=== PATIENT | male | born 1980 | race Caucasian/White ===

== ENCOUNTER 2018-03-05 19:01 | Emergency (ER) | payer BC ==
--- NOTE | 2018-03-05 19:41 | ED Physician Chart ---
ED Chief Complaint/HPI - Patient Information Date Seen:: 03/05/18 Time Seen:: 19:30 Chief Complaint:: abdominal pain History of Present Illness:: location: abdomen quality: sharp achy pain severity: mild, mod duration: 3 days context: pt with spontaneous onset of RUQ abdominal pain. some nausea. has been trying to eat, reduced overall PO intake. spoke with some family, has history of cholelithiasis in family. decided to come to the ER today instead of wait for clinic tomorrow due to persistent pain and duration of pain. no fever, no emesis today. mod factors: none assoc s/s: none hx from pt Allergies:: Allergies Allergy/AdvReac Type Severity Reaction Status Date / Time No Known Allergies Allergy Verified 03/05/18 19:13 Vitals:: Vital Signs - 8 hr 03/05/18 19:13 Temp 97.9 F HR 82 RR 17 BP 128/102 O2 Sat % 97 Historian:: Patient Review:: Nurse's Note Reviewed ED Review of Systems - Review of Systems General/Constitutional: No fever, No chills, No weight loss, No weakness, No diaphoresis, No edema, No loss of appetite Skin: No skin lesions, No rash, No bruising Head: No headache, No light-headedness Eyes: No loss of vision, No pain, No diplopia ENT: No earache, No nasal drainage, No sore throat, No tinnitus Neck: No neck pain, No swelling, No thyromegaly, No stiffness, No mass noted Cardio Vascular: No chest pain, No palpitations, No PND, No orthopnea, No edema Pulmonary: No SOB, No cough, No sputum, No wheezing GI: Nausea, No vomiting, No diarrhea, Pain, No melena, No hematochezia, No constipation, No hematemesis G/U: No dysuria, No frequency, No hematuria Musculoskeletal: No bone or joint pain, No back pain, No muscle pain Endocrine: No polyuria, No polydipsia Psychiatric: No prior psych history, No depression, No anxiety, No suicidal ideation Hematopoietic: No bruising, No lymphadenopathy Allergic/Immuno: No urticaria, No angioedema Neurological: No syncope, No focal symptoms, No weakness, No paresthesia, No headache, No seizure, No dizziness, No confusion, No vertigo ED Past Medical History - Past Medical History Past Medical History: No significant medical hx Family History: Other (cholelithiasis) Social History: Non Smoker, No Alcohol, No Drug Use, Surgical History: None Psychiatricy History: None Medication: None Family Medical History - Family Member Mother History Unknown: Yes ED Physical Exam - Physical Examination General/Constitutional: Awake, Well-developed, well-nourished, Alert, No distress, GCS 15, Non-toxic appearing, Ambulatory Head: Atraumatic Eyes: Lids, conjuctiva normal, PERRL, EOMI Skin: Nl inspection, No rash, No skin lesions, No ecchymosis, Well hydrated, No lymphadenopathy ENMT: External ears, nose nl, Nasal exam nl, Lips, teeth, gums nl Neck: Nontender, Full ROM w/o pain, No JVD, No nuchal rigidity, No bruit, No mass, No stridor Respiratory: Nl effort/Exclusion, Clear to Auscultation, No Wheeze/Rhonchi/Rales Cardio Vascular: RRR, No murmur, gallop, rubs, NL S1 S2 GI: Normal BS's (positive mild Rodriguez's sign, no rebound, normal bowel sounds lower abdomen. no peritoneal signs.), Nondistended, No mass/bruits, No McBurney tenderness : No CVA tenderness Extremities: No tenderness or effusion, Full ROM, normal strength in all extremities, No edema, Normal digits & nails Neuro/Psych: Alert/oriented, DTR's symmetric, Normal sensory exam, Normal motor strength, Judgement/insight normal, Mood normal, Normal gait, No focal deficits Misc: Normal back, No paraspinal tenderness ED Labs/Radiology/EKG Results - Lab Results Results: Laboratory Tests 03/05/18 03/05/18 19:40 19:40 WBC 6.0 RBC 5.54 Hgb 15.7 Hct 48.1 MCV 86.8 MCH 28.3 MCHC Differential 32.6 RDW 12.1 Plt Count 290 MPV 7.5 Neutrophils % 47.7 Lymphocytes % 43.9 Monocytes % 5.7 Eosinophils % 2.2 Basophils % 0.5 Sodium 139 Potassium 3.6 Chloride 104 Carbon Dioxide 24.1 Anion Gap 14.5 BUN 16 Creatinine 0.9 Est GFR ( Amer) > 60.0 Est GFR (Non-Af Amer) > 60.0 BUN/Creatinine Ratio 17.8 Glucose 142 H Calcium 9.4 Total Bilirubin 0.5 AST 26 ALT 47 Alkaline Phosphatase 78 Total Protein 7.0 Albumin 4.4 Globulin 2.6 Albumin/Globulin Ratio 1.7 Amylase 48 Lipase 17 - Radiology Results Results: ultrasound abdomen: contracted gall bladder no obvious stones no common duct dilation right lower lobe liver parenchymal changes ER READ pt will be advised to FU with PCP for further evaluation and treatment as indicated. ED Assessment - Assessment General Assessment: pt stable while in ER. improved after meds. ED Septic Shock - . Is Septic Shock (SBP<90, OR Lactate>4 mmol\L) present?: No - <6hrs of presentation: Vital Signs: Vital Signs - 8 hr 03/05/18 19:13 Temp 97.9 F HR 82 RR 17 BP 128/102 O2 Sat % 97 Assessment of Lungs: Lung CTA bilateral Assessment of Heart: RRR EKG Interpretation: NSR Capillary refill evaluation: Capillary refill < 2 secs Skin Exam: Warm, Dry, Good Turgur ED Reassessment (Disposition) - Reassessment Reassessment:: pt stable while in ER. Reassessment Condition:: Improved - Diagnosis Diagnosis:: abdominal pain, gastroenteritis, other - Aftercare/Follow up Instructions Notes:: pt with 3 day history of RUQ pain labs and ultrasound do not show any acute abnormality will refer pt to PCP for recheck tomorrow and further study as indicated. - Patient Disposition Discharge/Transfer:: Home Condition at Disposition:: Stable, Improved
[2018-03-05 19:46] LABS: % BASOPHILS 0.5 % (0.0-2.0); % EOSINOPHILS 2.2 % (0.0-5.0); % LYMPHOCYTES 43.9 % (20.0-50.0); % MONOCYTES 5.7 % (2.0-10.0); % NEUTROPHILS 47.7 % (40.0-80.0); EOSINOPHILE ABSOLUTE 0.1 Th/cmm (0.1-0.4); HEMATOCRIT 48.1 % (41.0-60); HEMOGLOBIN 15.7 gm/dL (12-16); LYMPHOCYTE ABSOLUTE 2.6 Th/cmm (1.5-3.0); MEAN CELL VOLUME 86.8 fl (80-99); MEAN CORPUSCULAR HEMOGLOBIN 28.3 pg (26.0-30.0); MEAN CORPUSCULAR HGB CONC 32.6 pg (28.0-36.0); MEAN PLATELET VOLUME 7.5 fl; MONOCYTE ABSOLUTE 0.3 Th/cmm (0.3-1.0); PLATELET COUNT 290 Th/cmm (150-400); RED BLOOD COUNT 5.54 Mil/cmm (4.30-5.70); RED CELL DISTRIBUTION WIDTH 12.1 % (11.5-20.0)
[2018-03-05 20:04] LABS: ALB/GLOB RATIO 1.7 (1.0-1.8); ALBUMIN 4.4 gm/dL (4.2-5.5); ALKALINE PHOSPHATASE 78 U/L (34-104); AMYLASE SERUM 48 U/L (29-103); ANION GAP 14.5 (7.0-16.0); BILIRUBIN,TOTAL 0.5 mg/dL (0.3-1.0); BUN - UREA NITROGEN 16 mg/dL (7-25); CALCIUM SERUM 9.4 mg/dL (8.6-10.3); CARBON DIOXIDE 24.1 mEq/L (21.0-31.0); CHLORIDE 104 mEq/L (98-107); CREATININE - SERUM 0.9 mg/dL (0.7-1.3); GFR AFRICAN-AMERICAN > 60.0 ml/min (>90); GFR NON AFRICAN-AMERICAN > 60.0 ml/min; GLUCOSE 142 mg/dL (70-105); LIPASE 17 U/L (11-82); POTASSIUM SERUM 3.6 mEq/L (3.5-5.1); SGOT 26 U/L (13-39); SGPT/ALT 47 U/L (7-52); SODIUM SERUM 139 mEq/L (136-145)
[2018-03-05 22:21] LABS: URINE SOURCE CLEAN C
[2018-03-05 22:25] LABS: URINE BILIRUBIN NEGATIVE (NEGATIVE); URINE BLOOD NEGATIVE (NEGATIVE); URINE GLUCOSE (UA) NEGATIVE (NEGATIVE); URINE KETONE NEGATIVE (NEGATIVE); URINE LEUKOCYTE ESTERASE NEGATIVE (NEGATIVE); URINE NITRATE NEGATIVE (NEGATIVE); URINE PH 6.5 (4.6 - 8.0); URINE PROTEIN NEGATIVE (NEGATIVE); URINE UROBILINOGEN 0.2 E.U./dL (0.2 - 1.0)
[2018-03-05 22:27] LABS: URINE CLARITY CLEAR (CLEAR); URINE COLOR YELLOW; URINE MICROSCOPIC INDICATED? NO
--- NOTE | 2018-03-06 07:38 | Diagnostic Imaging Report ---
Ultrasound abdomen, Limited History: Right upper quadrant pain, rule out gallstones Comparison: CT abdomen and pelvis performed the same day Technique/procedure: Sonography of the right upper quadrant was performed in multiple planes Exam is limited due to bowel gas. The liver demonstrates increased echogenicity measures 18.8 cm. There is areas of decreased echogenicity adjacent to the gallbladder probably related to an area of fatty sparing. The gallbladder is contracted limiting its evaluation. The common bile duct measures 4 mm. No pericholecystic fluid. Evaluation of the pancreas is limited due to bowel gas. Evaluation of the right kidney demonstrates no hydronephrosis. IMPRESSION: Contracted gallbladder limiting its evaluation. If clinically indicated, follow-up repeat exam after fasting may be obtained for further assessment. Mild hepatomegaly with increased echogenicity which may be due to underlying fatty infiltration. There is areas of decreased echogenicity adjacent to gallbladder probably representing an area of fatty sparing. Please also refer to recent CT examination for further details. Indicated a follow-up CT with IV contrast may also be.
--- NOTE | 2018-03-06 08:05 | Diagnostic Imaging Report ---
CT abdomen and pelvis without intravenous contrast Indication: Right flank pain Comparison: None, Technique: Axial images were obtained from the lung bases to the bilateral proximal femurs without IV contrast. Coronal reconstructions were made. total DLP: 510, CTDI10.1 FINDINGS: Hypoventilatory atelectatic changes of the lung bases are noted. Assessment of the solid organs is limited due to lack of IV contrast. There is fatty infiltration of the liver with scattered areas of fatty sparing. No focal splenic, pancreatic, or adrenal lesions. There is a subcentimeter low-density lesion within the right mid kidney too small to characterize but possibly representing a cyst. No evidence of hydronephrosis or renal stones. The urinary bladder is collapsed limiting its evaluation. No evidence of prostate gland enlargement. No erosive bowel obstruction. No evidence of free fluid. No appendicitis. A few mildly prominent mesenteric and right lower quadrant lymph nodes are noted. The osseous structures demonstrate no acute abnormalities. IMPRESSION: No evidence of hydronephrosis or renal stones. Subcentimeter low-density lesion of the right mid kidney too small to characterize but possibly representing a cyst. Fatty infiltration of the liver with areas of fatty sparing. A few mildly prominent mesenteric and right lower quadrant lymph nodes which are nonspecific and may be due to underlying mesenteric adenitis.
== END 2018-03-05 23:30 | disposition home or self-care (01) ==
LOC: ER 19:01
DX: K52.9 Noninfective gastroenteritis and colitis, unspecified (principal)
CPT/HCPCS: 99284; 76705; 74176; 36415; 85025; 81003; 82150; 83690; 80053; Q0162; Z7502